=== PATIENT | male | born 1935 | race Caucasian/White ===

== ENCOUNTER 2016-08-16 09:23 | Outpatient (CLI) | payer MEDICARE ==
[2016-08-16 11:03] LABS: #Eosinphils 0.1 thou/uL (0.0-0.7); #Lymphocytes 1.9 thou/uL (1.20-3.40); #Monocytes 0.4 thou/uL (0.11-0.59); #Neutrophils 3.1 thou/uL (1.40-6.50); %Basophils 0.5 % (0.0-1.0); %Eosinophils 2.3 % (0.0-10.0); %Lymphocytes 33.5 % (21.0-51.0); %Monocytes 7.7 % (0.0-10.0); Hemoglobin 14.4 g/dL (14.0-18.0); Mean Corpuscular HGB CONC 31.9 g/dL (32.0-36.0); Mean Corpuscular Hemoglobin 26.9 pg (27.0-31.0); Mean Corpuscular Volume 84.4 fl (80.0-94.0); Mean Platelet Volume 6.8 fL (7.4-10.4); Platelet Count 207 thou/uL (130-400); RBC Distribution Width 12.7 % (11.5-14.5); Red Blood Cell (RBC) Count 5.33 mill/uL (4.70-6.10); White Blood Cell (WBC) Count 5.5 thou/uL (4.8-10.8)
[2016-08-16 11:21] LABS: ALT (SGPT) 29 U/L (0-55); AST (SGOT) 20 U/L (5-34); Albumin 4.1 g/dL (3.4-4.8); Alkaline Phosphatase 52 U/L (40-150); Anion Gap 12 mmol/L (10-20); BUN (Urea Nitrogen) 27 mg/dL (8.4-25.7); Bilirubin, Total 0.6 mg/dL (0.2-1.2); Calc. Creatinine Clearance 0 mL/min (70-130); Carbon Dioxide 24 mmol/L (23-31); Cardiac Risk 4.2 (Less than 4.5); Chloride 109 mmol/L (98-107); Cholesterol 138 mg/dL (< 200 Desired); Estimated GFR-MDRD 62; Globulin 3.1 g/dL (2.4-3.5); Glucose 71 mg/dL (83-110); HDL Cholesterol 33 mg/dL (>60 Neg Risk); LDL Cholesterol, Calculated 84 mg/dL; Potassium 3.8 mmol/L (3.5-5.1); Protein, Total 7.2 g/dL (5.8-8.1); Sodium 141 mmol/L (136-145); Triglycerides 104 mg/dL (Less than 150)
== END 2016-08-16 09:24 | disposition home or self-care (01) ==
LOC: HPCALD 09:23
PROVIDERS: ATTEND Family Medicine
DX: E78.2 Mixed hyperlipidemia (principal); I10 Essential (primary) hypertension
CPT/HCPCS: 36415; 80053; 80061; 84443; 85025

== ENCOUNTER 2019-06-10 13:18 | Outpatient (CLI) | payer MEDICARE ==
--- NOTE | 2019-06-10 13:59 | CT ---
EXAM: CT of the chest without contrast HISTORY: Mediastinal adenopathy. Liposarcoma. COMPARISON: CT neck 03/27/2019 TECHNIQUE: Multiple contiguous axial images were obtained in a CT the chest without contrast. Coronal and sagittal reformats were performed. FINDINGS: HEART: Normal in size without focal cardiac abnormality. Calcifications are seen in the coronary [place] and aorta. There is a triangle shaped low density fluid collection to the right of the trachea which likely represents a small amount of fluid in the pericardial recess. MEDIASTINUM: No hilar or mediastinal lymphadenopathy. Evaluation of the mediastinum is limited withou t IV contrast. LUNGS: No focal infiltrates, nodules, or masses. PLEURAL SPACE: No pneumothorax or pleural effusion. CHEST WALL SOFT TISSUES: Unremarkable OSSEOUS STRUCTURES: Degenerative changes in the spine. VISUALIZED SUBDIAPHRAGMATIC STRUCTURES: Unremarkable IMPRESSION: No evidence of mediastinal adenopathy. The previously seen abnormality represents a small amount of f luid in the pericardial recess.
== END 2019-06-10 13:19 | disposition home or self-care (01) ==
LOC: BURCT 13:18
PROVIDERS: ATTEND Thoracic Surgery (Cardiothoracic Vascular Surgery)
DX: R59.0 Localized enlarged lymph nodes (principal); I31.3 Pericardial effusion (noninflammatory)
CPT/HCPCS: 71250

== ENCOUNTER 2023-12-22 05:34 | Emergency (ER) | payer MEDICARE ==
[2023-12-22] MEDS ORDERED: Furosemide 40 MG (4 mL) VIAL ONE (06:13)
[2023-12-22] MEDS ORDERED: Aspirin Chewable 81 MG TAB ONE (06:14)
[2023-12-22 06:15] LABS: #Basophils 0.1 thou/uL (0.0-0.2); #Lymphocytes 1.5 thou/uL (1.20-3.40); #Monocytes 1.4 thou/uL (0.11-0.59); #Neutrophils 7.6 thou/uL (1.40-6.50); %Basophils 1.1 % (0.0-1.0); %Eosinophils 0.1 % (0.0-10.0); %Lymphocytes 14.4 % (21.0-51.0); %Monocytes 12.8 % (0.0-10.0); %Neutrophils 71.7 % (42.0-75.0); Hematocrit 21.8 % (42.0-52.0); Hemoglobin 6.4 g/dL (14.0-18.0); Mean Corpuscular HGB CONC 29.3 g/dL (32.0-36.0); Mean Corpuscular Hemoglobin 21.1 pg (27.0-31.0); Mean Platelet Volume 7.7 fL (7.4-10.4); Platelet Count 264 10x3/uL (130-400); Red Blood Cell (RBC) Count 3.03 mill/uL (4.70-6.10); White Blood Cell (WBC) Count 10.6 10x3/uL (4.8-10.8)
[2023-12-22 06:23] LABS: Base Excess-Venous -2.5 mmol/L (-2.0 to 3.0); Bicarbonate (HCO3v) 24.6 mmol/L (22.0-28.0); CO2 Tension (PvCO2) 54.9 mmHg (42.0-51.0); Calcium, Ionized 1.19 mmol/L (1.15-1.33); Chloride 104 mmol/L (98-107); Hemoglobin - Calc 8.1 g/dL (14.0-18.0); Potassium 4.2 mmol/L (3.5-5.1); Sodium 141 mmol/L (138-145); T. Carbon Dioxide 26.3 mmol/L (22.0-28.0); vO2 Saturation-calc 94.9 % (60.0-85.0)
[2023-12-22 06:29] LABS: ALT (SGPT) 10 U/L (8-55); AST (SGOT) 9 U/L (5-34); Albumin 3.6 g/dL (3.4-4.8); Alkaline Phosphatase 64 U/L (40-110); Anion Gap 16 mmol/L (10-20); BUN (Urea Nitrogen) 33 mg/dL (8.4-25.7); Bilirubin, Total 0.6 mg/dL (0.2-1.2); Calc. Creatinine Clearance 0 mL/min (70-130); Calcium 8.9 mg/dL (7.8-10.44); Carbon Dioxide 24 mmol/L (23-31); Chloride 105 mmol/L (98-107); Estimated GFR 35; Globulin 3.1 g/dL (2.4-3.5); Glucose 149 mg/dL (83-110); Potassium 4.3 mmol/L (3.5-5.1); Protein, Total 6.7 g/dL (5.8-8.1); Sodium 141 mmol/L (136-145)
[2023-12-22 06:36] LABS: Troponin I 0.134 ng/mL (< 0.028)
[2023-12-22 06:55] LABS: MDiff Complete? YES
[2023-12-22 06:56] LABS: Elliptocytes SLIGHT = 2-5 cells (100X) (0-1/hpf); Hypochromia SLIGHT = 6-15 cells (100X) (0-5/hpf); Macrocytosis SLIGHT = 6-15 cells (100X) (0-5/hpf); Microcytosis SLIGHT = 6-15 cells (100X) (0-5/hpf)
== END 2023-12-22 07:10 | disposition home or self-care (01) ==
LOC: BURERS 05:34
DX: J96.00 Acute respiratory failure, unspecified whether with hypoxia or hypercapnia (principal); I11.0 Hypertensive heart disease with heart failure; I50.9 Heart failure, unspecified; I48.0 Paroxysmal atrial fibrillation; I25.10 Atherosclerotic heart disease of native coronary artery without angina pectoris; E78.00 Pure hypercholesterolemia, unspecified; Z87.891 Personal history of nicotine dependence; Z55.6 Problems related to health literacy; Z79.01 Long term (current) use of anticoagulants; Z79.82 Long term (current) use of aspirin; Z79.899 Other long term (current) drug therapy
CPT/HCPCS: 71045; 80053; 82330; 82435; 82803; 83880; 84132; 84295; 84484; 85014; 85025; 93005; J1940; 96374